=== PATIENT | male | born 1990 | race Caucasian/White ===

== ENCOUNTER 2022-04-26 12:45 | Outpatient (CLI) | payer BC, SELFPAY | END 2022-04-27 12:46 | disposition home or self-care (01) | PROVIDERS: Visit Provider Family Medicine | DX: R45.851 Suicidal ideations (principal) | CPT/HCPCS: A0425; A0429 ==

== ENCOUNTER 2022-04-26 13:14 | Emergency (ER) | payer BC, SELFPAY ==
[2022-04-26 13:30] VITALS: BP 146/97; PULSE 117; RESP 8; TEMP 37.1; O2SAT 99; BMI 50.1
--- NOTE | 2022-04-26 13:41 | ED_ITS ---
HPI - General Adult General Time Seen by Provider: 13:40 Date Seen: 04/26/22 Chief complaint: Psychiatric Problem/Disorder Stated complaint: mental health Time Seen by Provider: 04/26/22 13:19 Source: patient and family History of Present Illness HPI narrative: 32-year-old male with history of schizoaffective disorder brought in by Mom today for increasing behavioral issues. Apparently, patient is having increas ing abnormal behaviors, wandered out of the house yesterday and this morning. Mom reports patient is behaving oddly with episodes of ?dancing? in the shower and inappropriate laughter. She says yesterday he had an episode of crying for about 30 minutes. Patient is nonverbal for me on initial exam, does not answer questions or follow commands. Was seen in clinic and sent to the emergency department for further evaluation and treatment. Patient is wondering if is a change in behaviors from lipomas on his scalp pressing on nerves, or related to his heart. He does have a history of a bit a year ago having a syncopal episode, was seen by Cardiology but no further evaluation was done and no medications were added. Related Data Home Medications Medication Instructions Recorded Confirmed fluphenazine HCl 1 mg tablet 0.5 mg PO .AM 04/26/22 04/26/22 fluphenazine HCl 1 mg tablet 1 mg PO DAILY 04/26/22 04/26/22 metoprolol succinate 50 mg 50 mg PO DAILY 04/26/22 04/26/22 tablet,extended release 24 hr oxcarbazepine 300 mg tablet 300 mg PO .AM 04/26/22 04/26/22 oxcarbazepine 600 mg tablet 600 mg PO .PM 04/26/22 04/26/22 pantoprazole 40 mg tablet,delayed 40 mg PO DAILY 04/26/22 04/26/22 release trazodone 50 mg tablet 50 mg PO .PM 04/26/22 04/26/22 Allergies Allergy/AdvReac Type Severity Reaction Status Date / Time grass pollen Allergy Mild Unverified 04/26/22 13:29 mold Allergy Mild Uncoded 04/26/22 13:29 Review of Systems Status of ROS: Reports: 10 or more systems reviewed and unremarkable except as noted in History and below [facility] Medical History (Updated 04/26/22 @ 15:14 by Joaquim Zaragoza) Bipolar 1 disorder, manic, mild Schizo-affective schizophrenia Surgical History (Updated 04/26/22 @ 15:14 by Joaquim Zaragoza) History of adenoidectomy Exam Const: Vital Signs, click to edit/add: Vital Signs - 24 hr 04/26/22 13:30 04/26/22 16:12 Temperature 98.8 F Pulse Rate [Pulse Oximeter] 117 H 106 H Respiratory Rate 8 L Blood Pressure [Ri ght Upper Arm] 146/97 H 150/81 H Pulse Oximetry 99 95 Documenting provider has reviewed patient's vital signs: yes Common normals: no apparent distress, alert and well nourished HENMT: Common normals: normocephalic, head/scalp atraumatic, external ears normal and external nose normal Head and scalp: normocephalic and atraumatic Nose: external nose normal External ear: external ears normal Eye: Common normals: PERRL and conjunctivae normal Conjunctiva: conjunctiva(e) normal Pupil: PERRL Neck & C-Spine: Common normals: full ROM, no lymphadenopathy and supple Chest: Common normals: palpation of chest normal Resp: Common normals: normal respiratory effort and clear to auscultation bilaterally Auscultation: clear to auscultation bilaterally Cardio: Common normals: regular rate, regular rhythm and no murmurs Rate: regular rate Rhythm: regular rhythm GI: Common normals: Normal to inspection, nondistended, normoactive bowel sounds present, soft to palpation and non-tender Palpation: soft : Common normals: no CVA tenderness Bladder/kidney exam: no CVA tenderness Back & Pelvis: Common normals: no CVA tenderness and thoracic and lumbar spine normal to inspection Extremity: Common normals: normal to inspection, full ROM and no pedal edema Neuro: Common normals: CN's II-XII intact bilaterally, moves all extremities and no focal motor deficits Sensorium/orientation: alert Other: Patient is awake, does not follow commands, mildly hyperreflexic but with no inducible clonus Psych: Appearance: grossly normal Other: Patient staring, holding various postures and does not move and repositioned. Some spontaneous movements. Does occasionally make eye contact. Appears to be reacting to internal stimuli with occasional inappropriate laughter. Skin: Common normals: no rashes or lesions noted General skin exam: no rashes or lesions noted Course Course Hospital Course: Patient seen and examined, prior records are reviewed. Differential diagnosis includes but not limited to depression, anxiety, toñito, bipolar disorder, schizoaffective disorder, schizophrenia, substance abuse. Patient with history of schizoaffective disorder, increasingly bizarre behaviors recently. On exam here, patient has inappropriate laughing episodes, appears to be responding to internal stimuli, not attentive to external surroundings follow commands or answer questions. Labs are ordered along with tele mental health assessment as patient is having acute psychosis and will need placement. Reevaluation(s) Reevaluation #1: Patient recheck, he has been pacing the room and generally remains cooperative. He was given Zyprexa earlier which is not made a significant change in his behaviors. Mom says that he does pace a lot and so this may be self soothing, as long as patient remains otherwise calm, no further interventions needed. No inpatient mental health beds available in the [facility], mom does not want to go back to [facility] board in the emergency department and continued to look for placement in the morning. Patient is medically clear for inpatient behavioral health admission. Time: 18:15 Reevaluation #2: Sign out to oncoming provider at change of shift Time: 21:00 Consultations Consultation #1: Care discussed with assessment and referral, will look for inpatient mental health placement for the patient. Time: 14:51 Vital Signs Vital signs: Initial Vital Signs Temperature 98.8 F 04/26/22 13:30 Temperature Source Temporal Artery Scan 04/26/22 13:30 Pulse Rate 117 H 04/26/22 13:30 Pulse Rhythm 04/26/22 13:30 Pulse Strength 3+ Normal 04/26/22 13:30 Respiratory Rate 8 L 04/26/22 13:30 Blood Pressure 146/97 H 04/26/22 13:30 Blood Pressure Mean 113 04/26/22 13:30 Blood Pressure Position Left Lateral 04/26/22 13:30 Pulse Oximetry 99 04/26/22 13:30 Oxygen Delivery Method 04/26/22 13:30 Vital Signs Temperature 98.8 F 04/26/22 13:30 Pulse Rate 117 H 04/26/22 13:30 Respiratory Rate 8 L 04/26/22 13:30 Blood Pressure 146/97 H 04/26/22 13:30 Pulse Oximetry 99 04/26/22 13:30 Temperature 98.8 F 04/26/22 13:30 Pulse Rate 106 H 04/26/22 16:12 Respiratory Rate 8 L 04/26/22 13:30 Blood Pressure 150/81 H 04/26/22 16:12 Pulse Oximetry 95 04/26/22 16:12 Medical Decision Making Medical Records Medical records reviewed: Yes I reviewed the patient's medical records Lab Data Lab results reviewed: Yes I reviewed the patient's lab results Labs: Lab Results 04/26/22 04/26/22 04/26/22 Range/Units 14:09 14:11 14:47 Sodium 136 (135-149) mmol/L Potassium 3.9 (3.6-5.1) mmol/L Chloride 101 (96-114) mmol/L Carbon Dioxide 23 (20-32) mmol/L BUN 14 (5-24) mg/dL Creatinine 0.8 (0.5-1.5) mg/dL Estimated Creat Clear 116.38 Glucose 106 (60-115) mg/dL Calcium 8.7 (8.4-10.6) mg/dL Total Bilirubin 0.6 (0.1-1.5) mg/dL Direct Bilirubin 0.4 (0.0-0.5) mg/dL AST 61 H (12-35) U/L ALT 51 H (4-50) U/L Alkaline Phosphatase 117 (40-150) U/L Total Protein 7.9 (6.0-8.3) g/dL Albumin 4.6 (3.3-5.0) g/dL Urine Opiates Screen Negative (Negative) Ur Oxycodone Screen Not Reportable Urine Methadone Screen Negative (Negative) Ur Propoxyphene Screen Negative (Negative) Ur Barbiturates Screen Negative (Negative) U Tricyclic Antidepress Negative (Negative) Ur Phencyclidine Scrn Negative (Negative) Ur Amphetamines Screen Negative (Negative) U Methamphetamines Scrn Negative (Negative) U Benzodiazepines Scrn Negative (Negative) Urine Cocaine Screen Negative (Negative) U Marijuana (THC) Screen Negative (Negative) Ur Drug Screen Comment See Note SARS-CoV-2 (PCR) Negative SARS-CoV-2 (Negative) ECG Data Attestation: I personally reviewed and interpreted this ECG as follows: Prior ECG tracings: available for review Interpretation: Performed at 3:16 p.m., sinus tachycardia rate 117, normal axis, normal intervals, QTC 512. No prior for comparison. Discharge Plan Discharge Clinical Impression: Acute psychosis, Bipolar disorder Patient Disposition: Xfer Other Prescriptions: No Action fluphenazine HCl 1 mg tablet 1 mg PO DAILY 0RF fluphenazine HCl 1 mg tablet 0.5 mg PO .AM 0RF metoprolol succinate 50 mg tablet extended release 24 hr 50 mg PO DAILY 0RF oxcarbazepine 300 mg tablet 300 mg PO .AM 0RF oxcarbazepine 600 mg tablet 600 mg PO .PM 0RF pantoprazole 40 mg tablet,delayed release (DR/EC) 40 mg PO DAILY 0RF trazodone 50 mg tablet 50 mg PO .PM 0RF Rx Instructions: take 1/2 to 2 tablets 25-100mg by mouth at bedtime Stand Alone Forms: [employer] Info Instructions
--- NOTE | 2022-04-26 14:05 | ED.NURSE ---
MD was in for exam. SEP request sent. [employer] swab collected and sent to lab. Lab was in for blood draw. Report given to Sep, assessment started.
[2022-04-26 14:30] LABS: Chloride* 101 mmol/L (96-114)
[2022-04-26 14:31] LABS: Albumin* 4.6 g/dL (3.3-5.0); Potassium* 3.9 mmol/L (3.6-5.1); Sodium* 136 mmol/L (135-149)
[2022-04-26 14:34] LABS: Alanine Aminotransferase* 51 U/L (4-50); Alkaline Phosphatase* 117 U/L (40-150); Aspartate Amino Transferase* 61 U/L (12-35); Bilirubin Direct* 0.4 mg/dL (0.0-0.5); Bilirubin Total* 0.6 mg/dL (0.1-1.5); Blood Urea Nitrogen* 14 mg/dL (5-24); Calcium* 8.7 mg/dL (8.4-10.6); Creatinine* 0.8 mg/dL (0.5-1.5); Est. Creatinine Clearance* 116.38; Estimated Glomerular Filt Rate 121.34; Glucose* 106 mg/dL (60-115); Total Protein* 7.9 g/dL (6.0-8.3)
--- NOTE | 2022-04-26 14:45 | ED.NURSE ---
DEC assessment complete. Pt ambulatory to the restroom, provided UA. UA sent to lab.
[2022-04-26 14:53] LABS: Carbon Dioxide* 23 mmol/L (20-32)
[2022-04-26 15:01] LABS: Amphetamine Screen Urine Negative (Negative); Barbiturate Screen Urine Negative (Negative); Benzodiazepines Screen Urine Negative (Negative); Cannabinoid Screen Urine Negative (Negative); Cocaine Screen Urine Negative (Negative); Methadone Screen Urine Negative (Negative); Methamphetamines Screen Urine Negative (Negative); Opiate Screen Urine Negative (Negative); Phencyclidine Screen Urine Negative (Negative); Tricyclic Antidepressant Urine Negative (Negative)
[2022-04-26 15:20] LABS: SARS PCR* Negative SARS-CoV-2 (Negative)
[2022-04-26 16:12] VITALS: BP 150/81; PULSE 106; O2SAT 95
[2022-04-26] MEDS: OLANZapine 5 MG TAB.RAPDIS 10 MG PO (17:17)
--- NOTE | 2022-04-26 17:19 | ED.NURSE ---
Pt standing in doorway, not responsive to verbal prompts or commands from staff. Pt eventually redirected back into room by pt's mother and staff. Pt exhibiting the following behaviors periodically during this event: raising his hands up in the air, shaking his head and body for several seconds at a time, staring off into space. PO meds given to pt, pt accepted meds after some convincing by pt mother and staff.
[2022-04-26 20:40] VITALS: BP 142/95; PULSE 89; RESP 10; TEMP 35.6; O2SAT 93
--- NOTE | 2022-04-26 20:54 | ED.NURSE ---
Pt rights read to pt, copy of hold and pt rights provided. Pt leaves by EMS.
[2022-04-26 20:59] VITALS: BP 142/95; PULSE 89; RESP 10; TEMP 35.6
== END 2022-04-26 21:01 | disposition other institution (70) ==
PROVIDERS: Emergency Provider Family Medicine
DX: F23 Brief psychotic disorder (principal); F31.9 Bipolar disorder, unspecified
CPT/HCPCS: 36415; 80048; 80076; 80306; 87635; 93005; 99284; 99285; A9270

== ENCOUNTER 2022-04-26 20:46 | Outpatient (CLI) | payer BC, SELFPAY | END 2022-04-26 20:47 | disposition home or self-care (01) | LOC: AMB 04-29 17:19 | PROVIDERS: Visit Provider Family Medicine | DX: R45.851 Suicidal ideations (principal) | CPT/HCPCS: A0425; A0428; A0429 ==

== ENCOUNTER 2024-11-22 09:20 | Outpatient (CLI) | payer OTHER, SELFPAY | END 2024-11-22 09:21 | disposition home or self-care (01) | LOC: AMB 12-01 05:54 | PROVIDERS: PCP Family Medicine; Visit Provider Student in an Organized Health Care Education/Training Program | DX: F29 Unspecified psychosis not due to a substance or known physiological condition (principal) | CPT/HCPCS: A0425; A0427 ==